=== PATIENT | male | born 1960 | race African-American/Black ===

== ENCOUNTER → 2018-03-22 | Outpatient (CLI) | payer OTHER ==
--- NOTE | 2018-03-23 10:37 | RADIOLOGY REPORT (SQ) ---
EXAM DESCRIPTION: PET CT SKULL/THIGH COMPLETED DATE/TIME: 03/22/2018 9:58 pm REASON FOR STUDY: OTHER NONSPECIFIC LYMPHADENITIS I88.8 OTHER NONSPECIFIC LYMPHADENITIS COMPARISON: CT chest from outside facility dated 12/12/2017. RADIONUCLIDE AND DOSE: 10 mCi F18 FDG The route of agent administration: Intravenous FASTING BLOOD SUGAR: 100 mg/dl CONTRAST TYPE AND DOSE: No CT contrast given. TECHNIQUE: Blood glucose level was verified. Above dose of FDG was injected intravenously. 2-D seg mented attenuation correction images were obtained from the base of the skull to the midthighs. Nonc ontrast CT images were obtained for attenuation correction and fusion with emission images. CT image s were performed without oral or intravenous contrast and are not sensitive for parenchymal lesions. A series of overlapping emission PET images were obtained. Images reviewed and manipulated at [facility] work station by the radiologist. Images stored on PACS. LIMITATIONS: None. FINDINGS: HEAD AND NECK: No areas of abnormal metabolic activity in the soft tissues of the head and neck. CHEST: No areas of abnormal metabolic activity in the chest. Again seen are several mediastinal and hilar lymph nodes. These are not as clearly visualized due to lack of contrast. These generally holli sure between 1 and 1.5 cm. No abnormal activity associated with these lymph nodes. ABDOMEN AND PELVIS: No areas of abnormal metabolic activity in the abdomen or pelvis. Expected physi ologic activity is present in the genitourinary system and bowel. PROXIMAL LOWER EXTREMITIES: No areas of abnormal metabolic activity in the soft tissues of the lower extremities. BONES: No abnormal metabolic activity in the visualized skeleton. ADDITIONAL CT FINDINGS: Diffuse sinus disease. No additional significant findings on the noncontrast CT images. OTHER: No other significant findings. Background blood pool activity mean SUV 1.66. Background live r activity mean SUV 2.01. IMPRESSION: UNREMARKABLE PET-CT SCAN. NO ABNORMAL ACTIVITY ASSOCIATED WITH THE MEDIASTINAL AND SERGEI R LYMPH NODES. NO OTHER SIGNIFICANT FINDINGS OTHER THAN EVIDENCE OF SINUS DISEASE. TECHNICAL DOCUMENTATION: JOB ID: [id number] [employer]- All Rights Reserved Reading location - IP/workstation name: [email or web address]
== END ==
LOC: RAD 18:53
PROVIDERS: ATTEND Internal Medicine
DX: I88.8 Other nonspecific lymphadenitis (principal)
CPT/HCPCS: 78815; A9552

== ENCOUNTER 2018-06-20 07:56 | Emergency (ER) | payer OTHER ==
[2018-06-20 09:49] LABS: ABSOLUTE LYMPHOCYTES (AUTO) 0.9 10^3/uL (0.5-4.7); ABSOLUTE MONOCYTES (AUTO) 0.9 10^3/uL (0.1-1.4); ABSOLUTE NEUT (AUTO) 6.9 10^3/uL (1.7-8.2); BASOPHILS % (AUTO) 0.2 % (0-2); HEMATOCRIT 32.5 % (37.9-51.0); HEMOGLOBIN 11.2 g/dL (13.5-17.0); LYMPHOCYTES % (AUTO) 10.1 % (13-45); MEAN CORPUSCULAR HEMOGLOBIN 33.1 pg (27.0-33.4); MEAN CORPUSCULAR HGB CONC 34.5 g/dL (32.0-36.0); MEAN CORPUSCULAR VOLUME 96 fl (80-97); MONOCYTES % (AUTO) 10.1 % (3-13); PLATELET COUNT 215 10^3/uL (150-450); RED BLOOD COUNT 3.39 10^6/uL (4.35-5.55); RED CELL DISTRIBUTION WIDTH 16.1 % (11.5-14.0); SEGMENTED NEUTROPHILS % (AUTO) 79.6 % (42-78); TOTAL CELLS COUNTED % (AUTO) 100 %; WHITE BLOOD COUNT 8.7 10^3/uL (4.0-10.5)
[2018-06-20 09:52] LABS: ALANINE AMINOTRANSFERASE 23 U/L (21-72); ALBUMIN 4.6 g/dL (3.5-5.0); ALKALINE PHOSPHATASE 111 U/L (38-126); ANION GAP 15 (5-19); ASPARTATE AMINO TRANSFERASE 50 U/L (17-59); BILIRUBIN,DIRECT 1.9 mg/dL (0.0-0.4); BILIRUBIN,TOTAL 2.7 mg/dL (0.2-1.3); BLOOD UREA NITROGEN 27 mg/dL (7-20); CALCIUM 9.7 mg/dL (8.4-10.2); CARBON DIOXIDE 26 mmol/L (22-30); CHLORIDE 99 mmol/L (98-107); GLUCOSE 109 mg/dL (75-110); POTASSIUM 4.4 mmol/L (3.6-5.0); SODIUM 140.3 mmol/L (137-145); TOTAL PROTEIN 8.7 g/dL (6.3-8.2)
[2018-06-20] MEDS ORDERED: NORMAL SALINE 1000 ML 1,000 ML IV ONE (09:58)
--- NOTE | 2018-06-20 10:56 | RADIOLOGY REPORT (SQ) ---
EXAM DESCRIPTION: CT SOFT TISSUE NECK WITH COMPLETED DATE/TIME: 06/20/2018 10:40 am REASON FOR STUDY: Sore throat, unable to swallow COMPARISON: None. TECHNIQUE: Post IV contrasted scanning from skull base through lung apices with review of bone, soft tissue and lung windows. Reconstructed coronal and sagittal MPR images reviewed. All images stored on PACS. All CT scanners at this facility use dose modulation, iterative reconstruction, and/or weight based d osing when appropriate to reduce radiation dose to as low as reasonably achievable (ALARA). [facility]: Dose Right [facility]: CareDose [facility]: Dose Right [facility]: Teradose 4D [facility]: [employer] CONTRAST TYPE AND DOSE: contrast/concentration: Isovue 350.00 mg/ml; Total Contrast Delivered: 75.0 ml; Total Saline Delivered: 55.0 ml RENAL FUNCTION: Creatinine 1.22 RADIATION DOSE: CT Rad equipment meets quality standard of care and radiation dose reduction techniq ues were employed. CTDIvol: 17.5 mGy. DLP: 620 mGy-cm. . LIMITATIONS: None. FINDINGS: SKULL BASE: Intact. MAJOR SALIVARY GLANDS: No solid or cystic masses. No inflammatory changes. LYMPHADENOPATHY: Small submental nodes. MUCOSAL MASSES OR ASYMMETRY: There is marked prevertebral soft tissue swelling noted generally from t he skullbase to the level of C6. No discrete abscess. Measures 2 cm in diameter. LARYNX/CORDS: No abnormal findings. VASCULAR STRUCTURES: The major vessels are patent. LUNG APICES: Clear. BONES: Diffuse degenerative changes. THYROID: Normal size. No masses. PARANASAL SINUSES: Right maxillary ethmoid and frontal sinus disease. OTHER: No other significant finding. IMPRESSION: Marked prevertebral soft tissue swelling generally noted without a focal abscess. Tumor and infection in the differential. TECHNICAL DOCUMENTATION: JOB ID: [id number] Quality ID # [id number]: Final reports with documentation of one or more dose reduction techniques (e.g., Au tomated exposure control, adjustment of the mA and/or kV according to patient size, use of iterative reconstruction technique) 2010 [employer]- All Rights Reserved Reading location - IP/workstation name: [email or web address]
[2018-06-20] MEDS ORDERED: DEXAMETHASONE SOD PHOS INJ 10 MG/1 ML VIAL IV ONE (11:02)
--- NOTE | 2018-06-20 13:56 | ER Document Report ---
Entered by EBONI FLORES SCRIBE 06/20/18 0912 Acting as scribe for:OTIS WYMAN MD ED General - General Chief Complaint: Difficulty Swallowing Stated Complaint: SWOLLEN THROAT Time Seen by Provider: 06/20/18 08:46 Primary Care Provider: KITA CARY JR, MD [NO LOCAL MD] - Follow up as needed Mode of Arrival: Ambulatory Information source: Patient Notes: Patient is a 57 year old male with Waldenstrom macroglobulinemia, PTSD presents to the emergency department complaining of throat pain and difficulty swallowing onset 4 days ago, worsening 2 days ago. Patient states he presented to [facility] at 0300 and 1400 yesterday. He states he was given a steroid shot, a GI cocktail and toradol during those visits and diagnosed with viral pharyngitis. He states his symptoms have not at all improved. He states he can not swallow anything, including his saliva, further stating whatever he attempts to swallow gets stuck in the middle of his throat near his nina's apple. Patient is currently taking Abilify and Wellbutrin. TRAVEL OUTSIDE OF THE [place] IN LAST 30 DAYS: No - Related Data Allergies/Adverse Reactions: No Known Allergies Allergy (Verified 06/20/18 07:57) Past Medical History - General Information source: Patient - Social History Smoking Status: Never Smoker Cigarette use (# per day): No Chew tobacco use (# tins/day): No Smoking Education Provided: No Family History: Reviewed & Not Pertinent - Past Medical History Cardiac Medical History: Reports: Hx Hypertension Pulmonary Medical History: Reports: Hx Pneumonia Musculoskeletal Medical History: Reports Hx Arthritis - all over Psychiatric Medical History: Reports: Hx Post Traumatic Stress Disorder Past Surgical History: Reports: Hx Inguinal Hernia, Other - Arthroscopic surgery bilateral knees - Immunizations Hx Diphtheria, Pertussis, Tetanus Vaccination: Yes Hx Pneumococcal Vaccination: 03/19/14 Review of Systems - Review of Systems Constitutional: No symptoms reported EENT: See HPI Cardiovascular: No symptoms reported Respiratory: No symptoms reported Gastrointestinal: No symptoms reported Genitourinary: No symptoms reported Male Genitourinary: No symptoms reported Musculoskeletal: No symptoms reported Skin: No symptoms reported Hematologic/Lymphatic: No symptoms reported Neurological/Psychological: No symptoms reported -: Yes All other systems reviewed and negative Physical Exam - Vital signs Vitals: Temp Pulse Resp BP Pulse Ox 99.4 F 114 H 18 122/68 94 06/20/18 08:01 06/20/18 08:01 06/20/18 08:01 06/20/18 08:01 06/20/18 08:01 - Notes Notes: GENERAL: Alert, continuously spitting saliva and thick mucus into a cup, produces free falling tears when gagging. No acute distress. HEAD: Normocephalic, atraumatic. EYES: Pupils equal, round, and reactive to light. Extraocular movements intact. ENT: Oral mucosa moist, tongue midline. No visualized swelling in the posterior orophraynx. Gagging, continuously spitting saliva and thick mucus into a cup. NECK: Full range of motion. Supple. Trachea midline. LUNGS: Clear to auscultation bilaterally, no wheezes, rales, or rhonchi. No respiratory distress. HEART: Regular rate and rhythm. No murmurs, gallops, or rubs. ABDOMEN: Soft, non-tender. Non-distended. Bowel sounds present in all 4 quadrants. EXTREMITIES: Moves all 4 extremities spontaneously. NEUROLOGICAL: Alert and oriented x3. Normal speech. PSYCH: Normal affect, normal mood. SKIN: Warm, dry, normal turgor. No rashes or lesions noted. Course - Re-evaluation Re-evalutation: 06/20/18 15:30 I initially discussed the case with Dr. Alexander from the ENT service at [facility]. We both agreed that the patient should be admitted to the hospitalist service with ENT and/or GI consultation for biopsy and then oncology services if warranted. I next spoke with Dr. Jaquez from the hospitalist service who has accepted the patient. I did review the physical exam findings, the CT scan findings, the laboratory fi ndings and the differential diagnosis with the patient and his spouse, and they understand the significance of this problem. - Vital Signs Vital signs: Temp Pulse Resp BP Pulse Ox 99.4 F 114 H 19 123/69 96 06/20/18 08:01 06/20/18 08:01 06/20/18 15:01 06/20/18 15:01 06/20/18 15:01 - Laboratory Result Diagrams: 06/20/18 09:15 06/20/18 09:15 Laboratory results interpreted by me: 06/20/18 06/20/18 09:15 09:15 RBC 3.39 L Hgb 11.2 L Hct 32.5 L RDW 16.1 H Seg Neutrophils % 79.6 H Lymphocytes % 10.1 L BUN 27 H Total Bilirubin 2.7 H Direct Bilirubin 1.9 H Total Protein 8.7 H - Diagnostic Test Radiology reviewed: Reports reviewed - Marked prevertebral soft tissue swelling without focal abscess. Tumor and infection are in the differential. - Transfer of Care Care transferred to following provider: Dr. Price Notes: 06/20/18 15:34 The patient is n.p.o., he has a suction catheter to used to keep his oral cavity suctioned out, he is receiving maintenance IV fluids. He has been accepted at [facility] and is waiting for a bed assignment at this time. Discharge - Discharge Clinical Impression: Paravertebral mass, Compression of esophagus Difficulty swallowing Qualifiers: Dysphagia type: oropharyngeal phase Qualified Code(s): R13.12 - Dysphagia, oropharyngeal phase Condition: Stable Disposition: Critical Access [facility] Referrals: LUIS DANIEL CARRANZA,KITA Bullock MD [NO LOCAL MD] - Follow up as needed Scribe Attestation: 06/20/18 09:58 I personally performed the services described in the documentation, reviewed and edited the documentation which was dictated to the scribe in my presence, and it accurately records my words and actions. I personally performed the services described in the documentation, reviewed and edited the documentation which was dictated to the scribe in my presence, and it accurately records my words and actions.
[2018-06-20] MEDS ORDERED: DEXTROSE 5%-LACTATED RINGERS 1,000 ML IV ONE (14:15)
[2018-06-20 23:14] VITALS: BP 135/89
== END 2018-06-20 20:11 | disposition short-term general hospital (02) ==
LOC: ER 07:56
DX: K22.2 Esophageal obstruction (principal); R22.2 Localized swelling, mass and lump, trunk; R13.12 Dysphagia, oropharyngeal phase; R07.0 Pain in throat; I10 Essential (primary) hypertension; F43.10 Post-traumatic stress disorder, unspecified; Z79.899 Other long term (current) drug therapy; Z85.72 Personal history of non-Hodgkin lymphomas
CPT/HCPCS: 99284; 96361; 96374; 36415; 85025; 80053; 70491; J7030; J1100

== ENCOUNTER 2018-06-26 11:34 | Emergency (ER) | payer OTHER ==
[2018-06-26] MEDS ORDERED: ASPIRIN 81 MG TABLET, CHEWABLE PO ONE (13:45)
--- NOTE | 2018-06-26 13:47 | ER Document Report ---
ED Medical Screen (RME) - General Chief Complaint: Shortness Of Breath Stated Complaint: COUGH,RIB PAIN,SHORT OF BREATH Time Seen by Provider: 06/26/18 13:35 Primary Care Provider: DOMINIC ALLRED MD [Primary Care Provider] - Follow up as needed Mode of Arrival: Ambulatory Information source: Patient Notes: 57-year-old male presents the emergency department with complaints of fever, chest pain, shortness of breath. Patient states that was seen here last Friday and transferred to [facility] for a mass in his throat. Patient states that he was worked up and discharged home yesterday. He states that he is having fever of 102.7, right-sided rib pain that increases with deep breaths and coughing. Patient states that he is coughing up white sputum. He is currently on Augmentin, Tessalon Perles, Tylenol. His last dose of Tylenol was 30 minutes ago. I have greeted and performed a rapid initial assessment of this patient. A comprehensive ED assessment and evaluation of the patient, analysis of test results and completion of the medical decision making process will be conducted by additional ED providers. PHYSICAL EXAMINATION: GENERAL: Well-appearing, well-nourished and in no acute distress. HEAD: Atraumatic, normocephalic. EYES: Pupils equal round extraocular movements intact, conjunctiva are normal. ENT: Nares patent NECK: Normal range of motion LUNGS: No respiratory distress Musculoskeletal: Normal range of motion NEUROLOGICAL: Normal speech, normal gait. PSYCH: Normal mood, normal affect. SKIN: Warm, Dry, normal turgor, no rashes or lesions noted. TRAVEL OUTSIDE OF THE [place] IN LAST 30 DAYS: No - Related Data Allergies/Adverse Reactions: No Known Allergies Allergy (Verified 06/26/18 11:35) Past Medical History - Social History Frequency of alcohol use: weekends Drug Abuse: None - Past Medical History Cardiac Medical History: Reports: Hx Hypertension Denies: Hx Coronary Artery Disease, Hx Heart Attack Pulmonary Medical History: Reports: Hx Pneumonia Denies: Hx Asthma, Hx Bronchitis, Hx COPD Neurological Medical History: Denies: Hx Cerebrovascular Accident, Hx Seizures Renal/ Medical History: Denies: Hx Peritoneal Dialysis Musculoskeltal Medical History: Reports Hx Arthritis - all over Psychiatric Medical History: Reports: Hx Post Traumatic Stress Disorder Past Surgical History: Reports: Hx Inguinal Hernia, Hx Orthopedic Surgery - knee, Other - Arthroscopic surgery bilateral knees. Denies: Hx Pacemaker - Immunizations Hx Diphtheria, Pertussis, Tetanus Vaccination: Yes Physical Exam - Vital signs Vitals: Temp Pulse Resp BP Pulse Ox 99.1 F 98 20 144/72 H 96 06/26/18 11:38 06/26/18 11:38 06/26/18 11:38 06/26/18 11:38 06/26/18 11:38 Course - Vital Signs Vital signs: Temp Pulse Resp BP Pulse Ox 99.1 F 98 20 144/72 H 96 06/26/18 11:38 06/26/18 11:38 06/26/18 11:38 06/26/18 11:38 06/26/18 11:38 Doctor's Discharge - Discharge Referrals: DOMINIC ALLRED MD [Primary Care Provider] - Follow up as needed
--- NOTE | 2018-06-26 14:21 | RADIOLOGY REPORT (SQ) ---
EXAM DESCRIPTION: CHEST SINGLE VIEW COMPLETED DATE/TIME: 06/26/2018 2:01 pm REASON FOR STUDY: chest pain, shortness of breath COMPARISON: 2012 EXAM PARAMETERS: NUMBER OF VIEWS: One view. TECHNIQUE: Single frontal radiographic view of the chest acquired. RADIATION DOSE: NA LIMITATIONS: None. FINDINGS: LUNGS AND PLEURA: Subsegmental airspace disease in both lower lobes. Small right pleural effusion. MEDIASTINUM AND HILAR STRUCTURES: No masses. Contour normal. HEART AND VASCULAR STRUCTURES: Heart normal in size. Normal vasculature. BONES: No acute findings. HARDWARE: None in the chest. OTHER: No other significant finding. IMPRESSION: Bilateral lower lobe pneumonia. TECHNICAL DOCUMENTATION: JOB ID: [id number] [employer]- All Rights Reserved Reading location - IP/workstation name: [email or web address]
[2018-06-26 14:43] LABS: ABSOLUTE LYMPHOCYTES (AUTO) 2.3 10^3/uL (0.5-4.7); ABSOLUTE NEUT (AUTO) 7.6 10^3/uL (1.7-8.2); BASOPHILS % (AUTO) 0.4 % (0-2); EOSINOPHILS % (AUTO) 0.2 % (0-6); HEMATOCRIT 32.7 % (37.9-51.0); MEAN CORPUSCULAR HGB CONC 33.7 g/dL (32.0-36.0); MEAN CORPUSCULAR VOLUME 95 fl (80-97); MONOCYTES % (AUTO) 9.3 % (3-13); PLATELET COUNT 304 10^3/uL (150-450); RED BLOOD COUNT 3.44 10^6/uL (4.35-5.55); RED CELL DISTRIBUTION WIDTH 16.4 % (11.5-14.0); SEGMENTED NEUTROPHILS % (AUTO) 69.1 % (42-78); TOTAL CELLS COUNTED % (AUTO) 100 %
[2018-06-26 14:59] LABS: A TYPE INFLUENZA AG NEGATIVE (NEGATIVE); B INFLUENZA AG NEGATIVE (NEGATIVE)
[2018-06-26 15:02] LABS: ALANINE AMINOTRANSFERASE 40 U/L (21-72); ALBUMIN 4.5 g/dL (3.5-5.0); ALKALINE PHOSPHATASE 110 U/L (38-126); ANION GAP 11 (5-19); ASPARTATE AMINO TRANSFERASE 59 U/L (17-59); BILIRUBIN,DIRECT 0.5 mg/dL (0.0-0.4); BILIRUBIN,TOTAL 0.9 mg/dL (0.2-1.3); BLOOD UREA NITROGEN 17 mg/dL (7-20); CALCIUM 9.9 mg/dL (8.4-10.2); CARBON DIOXIDE 29 mmol/L (22-30); CHLORIDE 99 mmol/L (98-107); GLUCOSE 114 mg/dL (75-110); SODIUM 138.7 mmol/L (137-145); TOTAL PROTEIN 8.6 g/dL (6.3-8.2)
[2018-06-26] MEDS ORDERED: DOXYCYCLINE HYCLATE 100 MG TABLET PO ONE (19:14)
[2018-06-26] MEDS ORDERED: MORPHINE SULFATE 10 MG/ML INJ IV ONE (19:15)
[2018-06-26] MEDS ORDERED: IPRATROPIUM/ALBUTEROL 0.5-2.5 MG/3 ML AMPUL NEB ONE (19:15)
[2018-06-26] MEDS ORDERED: ONDANSETRON HCL INJ/PF 4 MG/2 ML SDV IV ONE (19:15)
--- NOTE | 2018-06-26 19:15 | ER Document Report ---
ED General - General Chief Complaint: Shortness Of Breath Stated Complaint: COUGH,RIB PAIN,SHORT OF BREATH Time Seen by Provider: 06/26/18 13:35 Primary Care Provider: DOMINIC ALLRED MD [Primary Care Provider] - Follow up as needed Mode of Arrival: Ambulatory Information source: Patient, [facility] Records Notes: 57-year-old male with hypertension presents the emergency department with complaints of fever, cough, chest pain, shortness of breath. Patient states that was seen here last Friday [facility]. Patient states that he was worked up and discharged home yesterday on Augmentin. He states that he is having fever of 102.7, right-sided rib pain that increases with deep breaths and coughing. Patient states that he is coughing up white sputum. He is currently on Augmentin, Tessalon Perles, Tylenol. His last dose of Tylenol was 30 minutes ago. TRAVEL OUTSIDE OF THE [place] IN LAST 30 DAYS: No - HPI Onset: Last week Onset/Duration: Gradual, Persistent, Worse Quality of pain: Achy, Throbbing Severity: Moderate Associated symptoms: Chest pain, Productive cough, Fever, Shortness of breath. denies: Nausea, Vomiting Exacerbated by: Coughing Relieved by: Denies Similar symptoms previously: No Recently seen / treated by doctor: Yes - Discharge from [facility] yesterday - Related Data Allergies/Adverse Reactions: No Known Allergies Allergy (Verified 06/26/18 11:35) Past Medical History - General Information source: Patient, [facility] Records, Outside Facility Records - Social History Smoking Status: Never Smoker Frequency of alcohol use: weekends Drug Abuse: None Lives with: Family, Spouse/Significant other Family History: Reviewed & Not Pertinent Patient has suicidal ideation: No Patient has homicidal ideation: No - Past Medical History Cardiac Medical History: Reports: Hx Hypertension Denies: Hx Coronary Artery Disease, Hx Heart Attack Pulmonary Medical History: Reports: Hx Pneumonia Denies: Hx Asthma, Hx Bronchitis, Hx COPD Neurological Medical History: Denies: Hx Cerebrovascular Accident, Hx Seizures Renal/ Medical History: Denies: Hx Peritoneal Dialysis Musculoskeletal Medical History: Reports Hx Arthritis - all over Psychiatric Medical History: Reports: Hx Post Traumatic Stress Disorder Past Surgical History: Reports: Hx Inguinal Hernia, Hx Orthopedic Surgery - knee, Other - Arthroscopic surgery bilateral knees. Denies: Hx Pacemaker - Immunizations Hx Diphtheria, Pertussis, Tetanus Vaccination: Yes Hx Pneumococcal Vaccination: 03/19/14 Review of Systems - Review of Systems Constitutional: Chills, Fever EENT: denies: Blurred vision, Nose congestion, Throat pain, Difficulty swallowing Cardiovascular: Chest pain, Dyspnea Respiratory: Cough, Short of breath, Sputum Gastrointestinal: denies: Abdominal pain, Diarrhea, Nausea Genitourinary: denies: Dysuria, Flank pain Male Genitourinary: No symptoms reported Musculoskeletal: denies: Back pain Skin: denies: Rash Hematologic/Lymphatic: No symptoms reported Neurological/Psychological: denies: Headaches -: Yes All other systems reviewed and negative Physical Exam - Vital signs Vitals: Temp Pulse Resp BP Pulse Ox 99.1 F 98 20 144/72 H 96 06/26/18 11:38 06/26/18 11:38 06/26/18 11:38 06/26/18 11:38 06/26/18 11:38 Interpretation: Hypertensive - Notes Notes: PHYSICAL EXAMINATION: GENERAL: Well-appearing, well-nourished and in no acute distress. HEAD: Atraumatic, normocephalic. EYES: Pupils equal round and reactive to light, extraocular movements intact, sclera anicteric, conjunctiva are normal. ENT: Nares patent, oropharynx clear without exudates. Moist mucous membranes. NECK: Normal range of motion, supple without lymphadenopathy LUNGS: Breath sounds clear to auscultation bilaterally and equal. No wheezes rales or rhonchi. HEART: Regular rate and rhythm without murmurs ABDOMEN: Soft, nontender, nondistended abdomen. No guarding, no rebound. No masses appreciated. Musculoskeletal: Normal range of motion, no pitting or edema. No cyanosis. NEUROLOGICAL: Cranial nerves grossly intact. Normal speech, normal gait. Normal sensory, motor exams PSYCH: Normal mood, normal affect. SKIN: Warm, Dry, normal turgor, no rashes or lesions noted. Course - Re-evaluation Re-evalutation: 06/26/18 19:21 Laboratory 06/26/18 06/26/18 06/26/18 14:19 14:19 14:19 WBC 11.0 H RBC 3.44 L Hgb 11.0 L Hct 32.7 L MCV 95 MCH 32.0 MCHC 33.7 RDW 16.4 H Plt Count 304 Seg Neutrophils % 69.1 Lymphocytes % 21.0 Monocytes % 9.3 Eosinophils % 0.2 Basophils % 0.4 Absolute Neutrophils 7.6 Absolute Lymphocytes 2.3 Absolute Monocytes 1.0 Absolute Eosinophils 0.0 Absolute Basophils 0.0 Sodium 138.7 Potassium 4.0 Chloride 99 Carbon Dioxide 29 Anion Gap 11 BUN 17 Creatinine 0.94 Est GFR ( Amer) > 60 Est GFR (Non-Af Amer) > 60 Glucose 114 H Calcium 9.9 Total Bilirubin 0.9 Direct Bilirubin 0.5 H Neonat Total Bilirubin Not Reportable Neonat Direct Bilirubin Not Reportable Neonat Indirect Bili Not Reportable AST 59 ALT 40 Alkaline Phosphatase 110 Troponin I < 0.012 Total Protein 8.6 H Albumin 4.5 Influenza A (Rapid) Influenza B (Rapid) 06/26/18 06/26/18 14:19 18:00 WBC RBC Hgb Hct MCV MCH MCHC RDW Plt Count Seg Neutrophils % Lymphocytes % Monocytes % Eosinophils % Basophils % Absolute Neutrophils Absolute Lymphocytes Absolute Monocytes Absolute Eosinophils Absolute Basophils Sodium Potassium Chloride Carbon Dioxide Anion Gap BUN Creatinine Est GFR ( Amer) Est GFR (Non-Af Amer) Glucose Calcium Total Bilirubin Direct Bilirubin Neonat Total Bilirubin Neonat Direct Bilirubin Neonat Indirect Bili AST ALT Alkaline Phosphatase Troponin I < 0.012 Total Protein Albumin Influenza A (Rapid) NEGATIVE Influenza B (Rapid) NEGATIVE Chest X-Ray 06/26/18 13:45 IMPRESSION: Bilateral lower lobe pneumonia. Temp Pulse Resp BP Pulse Ox 99.1 F 98 20 144/72 H 96 06/26/18 11:38 06/26/18 11:38 06/26/18 11:38 06/26/18 11:38 06/26/18 11:38 57-year-old male presents with complaint of chest pain, productive cough, fever and dyspnea. Reports that he was recently discharged from [facility] where he was seen for a throat mass that he reported was an abscess. Patient was discharged home on Augmentin. Chest x-ray significant for bilateral lobe pneumonia. Patient is well-appearing, not hypoxic, tachypneic or tachycardic. He has no increased work of breathing. Discussed admission with the patient for healthcare associated pneumonia but patient states that he does not want to be admitted to the hospital again and with like to trial a course of outpatient antibiotics. I did discuss that if this pneumonia was acquired during his hospitalizations that he may require IV antibiotics. Patient states that he has been away from home too long and would like to go home. 06/26/18 20:46 Patient did receive IV ceftriaxone, p.o. doxycycline, breathing treatments, Robitussin. On reevaluation patient states that he is feeling much better. Again states that he would like to go home. Patient was evaluated and treated as appropriate for the patient's presenting symptoms and complaint, with consideration of any critical or life threatening conditions that may be associated with their obtained history and exam as noted above. All results were discussed with patient. Patient provided the opportunity to ask questions, and express concerns. Patient was educated on treatments based on their presumed diagnosis as noted above. At this time we will discharge the patient with return precautions and follow-up recommendations. Verbal discharge instructions given a the bedside. Medication warnings reviewed. Patient is in agreement with this plan and has verbalized understanding of return precautions. After careful consideration I feel that that patient can be safely discharged from the emergency department, they were advised to followup with a primary care physician in 2-3 days. Dictation on this chart was performed using voice recognition software and may result in unintended grammatical, spelling, syntax or errors. - Vital Signs Vital signs: Temp Pulse Resp BP Pulse Ox 99.1 F 98 20 135/63 H 93 06/26/18 11:38 06/26/18 11:38 06/26/18 20:01 06/26/18 20:01 06/26/18 20:01 - Laboratory Result Diagrams: 06/26/18 14:19 06/26/18 14:19 Laboratory results interpreted by me: 06/26/18 06/26/18 14:19 14:19 WBC 11.0 H RBC 3.44 L Hgb 11.0 L Hct 32.7 L RDW 16.4 H Glucose 114 H Direct Bilirubin 0.5 H Total Protein 8.6 H - Diagnostic Test Radiology reviewed: Image reviewed, Reports reviewed - EKG Interpretation by Me EKG shows normal: Sinus rhythm Rate: Normal Rhythm: NSR Voltage: Consistant with LVH When compared to previous EKG there are: No significant change Discharge - Discharge Clinical Impression: Cough Pneumonia Qualifiers: Pneumonia type: due to unspecified organism Laterality: bilateral Lung loc ation: lower lobe of lung Qualified Code(s): J18.1 - Lobar pneumonia, unspecified organism Fever Qualifiers: Fever type: unspecified Qualified Code(s): R50.9 - Fever, unspecified Condition: Good Disposition: HOME, SELF-CARE Instructions: Dyspnea, Nonspecific ([facility]), Fever ([facility]), Pneumonia ([facility]) Additional Instructions: Follow up with your [id number] hours for further care or return to the ED IMMEDIATELY if symptoms worsen or you have any concerns. If you cannot afford to follow up with your primary care physician a list of low cost clinics have been provided at the end of your discharge papers as well. Most prescribed medications have multiple side effects. The safest thing to do is when filling your prescription speak to your pharmacist regarding possible interactions with your normal home medications and over the counter medications such as Ibuprofen, Tylenol, Benadryl. If you experience any symptoms that cause you discomfort or concern you should discontinue the medication immediately and return to the emergency room or call your primary care physician. You have been diagnosed with a pneumonia. It is very important that you take all of your antibiotics until they are gone even if you are feeling better. Please return to the emergency department immediately if you began having worsening shortness of breath, become confused, have worsening pain, pass out, have persistent vomiting that prevents you from being able to drink fluids for more than 12 hours, or have any other symptoms that are worrisome to you. Please follow-up with your primary care doctor in the next 1-2 days. Prescriptions: Guaifenesin/Codeine Phos [Robitussin-AC Syrup 59 ml] 10 ml PO QHS #50 ml Doxycycline Hyclate 100 mg PO BID #14 capsule Referrals: DOIMNIC ALLRDE MD [Primary Care Provider] - Follow up as needed
[2018-06-26] MEDS ORDERED: CEFTRIAXONE 1 GM/D5W RTU 1 GM/50 ML RTUPB IV ONE (20:30)
[2018-06-26] MEDS ORDERED: ALBUTEROL SULFATE HFA (90 MCG/PUFF) 8 GM MDI (1 MDI/ER DISP) IH PRN (20:48)
[2018-06-26 22:15] VITALS: BP 142/65
--- NOTE | 2018-06-27 20:03 | EKG REPORT ---
SEVERITY:- ABNORMAL ECG - SINUS RHYTHM ATRIAL PREMATURE COMPLEX LEFT VENTRICULAR HYPERTROPHY : Confirmed by: Claudia Lux 27-Jun-2018 20:02:34
== END 2018-06-26 22:15 | disposition home or self-care (01) ==
LOC: ER 11:34
DX: J18.1 Lobar pneumonia, unspecified organism (principal); J39.1 Other abscess of pharynx; R50.9 Fever, unspecified; R05 Cough; I10 Essential (primary) hypertension; R06.02 Shortness of breath; R07.81 Pleurodynia
CPT/HCPCS: 93005; 94640; 99284; 96375; 96365; 36415; 87040; 85025; 80053; 84484; 87804; 71045; 93010; J2270; J2405; J0696; J7620

== ENCOUNTER → 2019-09-23 | Outpatient (CLI) | payer OTHER ==
--- NOTE | 2019-09-23 14:39 | RADIOLOGY REPORT (SQ) ---
EXAM DESCRIPTION: MRI CERVICAL SPINE WITHOUT IMAGES COMPLETED DATE/TIME: 09/23/2019 2:23 pm REASON FOR STUDY: RADICULOPATHY CERVICAL REGION M54.12 RADICULOPATHY, CERVICAL REGION M25.512 PAIN IN LEFT SHOULDER COMPARISON: None. TECHNIQUE: Sagittal and Axial imaging includes T1, T2, STIR and gradient echo sequences. LIMITATIONS: Dental artifact. FINDINGS: ALIGNMENT: Reversal of the lordotic curve. VERTEBRAE: Intact. BONE MARROW: Normal. No marrow replacement or reactive changes. DISCS: Desiccation multiple levels. HARDWARE: None in the spine. CORD AND BASE OF BRAIN: Normal in size and signal intensity. SOFT TISSUES: No soft tissue masses. C1-C2: No significant spinal stenosis. C2-C3: Mild spinal stenosis due disc osteophyte complex. C3-C4: Mild -moderate spinal stenosis. Cord contact without cord compression. Moderate neural kurtis inal narrowing bilaterally. C4-C5: Mild spinal stenosis. C5-C6: Mild spinal stenosis. C6-C7: Mild spinal stenosis. C7-T1: No significant spinal stenosis or exit foraminal stenosis. UPPER THORACIC: Incompletely imaged. No significant spinal stenosis or exit foraminal stenosis. OTHER: No other significant finding. IMPRESSION: Spinal stenosis at multiple levels, more advanced at C3- 4. Neural foraminal stenosis. TECHNICAL DOCUMENTATION: JOB ID: [id number] 2010 [employer]- All Rights Reserved Reading location - IP/workstation name: [email or web address]
--- NOTE | 2019-09-23 14:42 | RADIOLOGY REPORT (SQ) ---
EXAM DESCRIPTION: MRI LT UPPER JOINT WITHOUT IMAGES COMPLETED DATE/TIME: 09/23/2019 2:23 pm REASON FOR STUDY: LT SHOULDER PAIN M54.12 RADICULOPATHY, CERVICAL REGION M25.512 PAIN IN LEFT SHOU LDER COMPARISON: None. TECHNIQUE: Left shoulder images acquired and stored on PACS. Multiplanar imaging to include fat sens itive sequences such as T1, water sensitive sequences such as FST2/STIR, cartilage sensitive sequence s such as FSPD/gradient-echo sequences. LIMITATIONS: None. FINDINGS: BONE MARROW AND CORTEX: Subchondral cyst formation humeral head. JOINT OR BURSAL EFFUSION: No significant joint or bursal fluid. No suggestion of loose bodies. GLENO-HUMERAL ARTICULATION: Intact. Central cartilage loss. ACROMION AND AC JOINT: Type 2 acromion. Mild AC joint arthropathy. ROTATOR CUFF AND INTERVAL: Tendinosis. No significant tear identified. No rotator interval tear. No rotator interval thickening to suggest adhesive capsulitis. LABRUM AND BICEPS LABRAL COMPLEX: Intact. No labral tear. Intra-articular long-head biceps tendon n ormal. Distal biceps in normal location in bicipital groove. REMAINDER OF LABRUM AND IGHL : No gross tear or paralabral cyst formation. Labral evaluation is less than optimal without joint distention. No thickening of IGHL to suggest adhesive capsulitis. PERIARTICULAR AND ADJACENT SOFT TISSUES: No masses or abnormal nodes. OTHER: No other significant finding. IMPRESSION: AC and glenohumeral joint arthropathy. Cuff tendinosis without significant tear identif ied. TECHNICAL DOCUMENTATION: JOB ID: [id number] 2010 [employer]- All Rights Reserved Reading location - IP/workstation name: [email or web address]
== END ==
LOC: RAD 12:24
PROVIDERS: ATTEND Family Medicine
DX: M54.12 Radiculopathy, cervical region (principal); M48.02 Spinal stenosis, cervical region; M25.512 Pain in left shoulder; M75.82 Other shoulder lesions, left shoulder; M12.811 Other specific arthropathies, not elsewhere classified, right shoulder
CPT/HCPCS: 72141